=== PATIENT | female | born 1955 | race American Indian/Alaskan Native ===

== ENCOUNTER 2022-08-03 05:00 | Emergency (ER) | payer OTHER ==
[2022-08-03] MEDS ORDERED: Ketorolac 30 MG/ML SDV IM ONE (17:45)
== END 2022-08-03 18:20 | disposition home or self-care (01) ==
LOC: DL.ED 05:00
DX: S80.01XA Contusion of right knee, initial encounter (principal)
CPT/HCPCS: 96372; 99283; J1885

== ENCOUNTER 2025-04-19 20:54 | Emergency (ER) | payer MEDICARE, OTHER ==
[2025-04-19] MEDS: Activated Charcoal/Water Susp 50 GM/240 ML Tube PO ONE (21:00)
[2025-04-19 21:26] LABS: BASOPHILS PERCENT AUTO 0.4 % (0.0-1.0); EOSINOPHILS PERCENT AUTO 1.1 % (1.0-3.0); HEMATOCRIT 44.3 % (37.0-47.0); HEMOGLOBIN 15.1 g/dL (12.0-16.0); LYMPHOCYTES PERCENT AUTO 20.2 % (20.5-50.1); MEAN CORPUSCULAR HEMOGLOBIN 29.8 pg (27.0-34.0); MEAN CORPUSCULAR HGB CONC 34.1 g/dL (33.0-35.0); MEAN CORPUSCULAR VOLUME 87.5 fL (80-100); MONOCYTES PERCENT AUTO 5.3 % (2-8); PLATELET COUNT,PLT 397 10^3/uL (150-450); RED BLOOD CELL COUNT 5.06 10^6/uL (4.2-5.4); WHITE BLOOD CELL COUNT,WBC 11.4 10^3/uL (5.0-10.0)
[2025-04-19 21:36] LABS: O2 DELIVERY DEVICE ROOM AIR
[2025-04-19 21:45] LABS: APPEARANCE,URINE CLEAR (CLEAR); BILIRUBIN,URINE NEGATIVE (NEGATIVE); COLOR,URINE YELLOW (YELLOW); GLUCOSE,URINE NEGATIVE (NEGATIVE); KETONES,URINE NEGATIVE (NEGATIVE); LEUKOCYTE ESTERASE,URINE SMALL (NEGATIVE); NITRITE,URINE NEGATIVE (NEGATIVE); OCCULT BLOOD,URINE TRACE-LYSED (NEGATIVE); PH,URINE 5.5 (5.0-9.0); PROTEIN,URINE NEGATIVE (NEGATIVE); UROBILINOGEN,URINE 0.2 mg/dL (0.2-1.0)
[2025-04-19 21:45] LABS: A/G RATIO 1.2; ALANINE AMINOTRANSFERASE,ALT 16 U/L (14-59); ALBUMIN 4.3 g/dL (3.4-5.0); ALKALINE PHOSPHATASE 149 U/L (46-116); ANION GAP 18.4 mEq/L (7-13); ASPARTATE AMNIOTRANSFERASE,AST 9 U/L (15-37); BILIRUBIN TOTAL 0.3 mg/dL (0.2-1.0); BLOOD UREA NITROGEN,BUN 10 mg/dL (7-18); BUN/CREATININE RATIO 9.3 (No establ ref range); CALCIUM 9.5 mg/dL (8.5-10.1); CARBON DIOXIDE,CO2 22 mmol/L (21-32); CHLORIDE,CL 105 mmol/L (98-107); CREATININE 1.08 mg/dL (0.55-1.02); GLUCOSE RANDOM 133 mg/dL (70-99); MAGNESIUM 2.2 mg/dL (1.8-2.4); PHOSPHORUS 3.2 mg/dL (2.6-4.7); POTASSIUM,K 4.4 mmol/L (3.5-5.1); PROTEIN TOTAL,TP 7.8 g/dL (6.4-8.2); SODIUM,NA 141 mmol/L (136-145)
[2025-04-19 21:46] LABS: ESTIMATED GFR 55 mL/min (>=60); ETHANOL BLOOD MEDICAL < 3 mg/dL (0)
[2025-04-19 21:48] LABS: AMPHETAMINES,URINE NEGATIVE (NEGATIVE); BARBITURATES,URINE NEGATIVE (NEGATIVE); BENZODIAZEPINE,URINE NEGATIVE (NEGATIVE); MDMA (ECSTASY), URINE NEGATIVE (NEGATIVE); METHADONE,URINE NEGATIVE (NEGATIVE); METHAMPHETAMINES,URINE NEGATIVE (NEGATIVE); OPIATES,URINE NEGATIVE (NEGATIVE); OXYCODONE,URINE NEGATIVE (NEGATIVE); PHENCYCLIDINE,URINE NEGATIVE (NEGATIVE); TCA,URINE NEGATIVE (NEGATIVE)
[2025-04-19 21:58] LABS: BASE EXCESS VENOUS -14 mmol/L ((-2)-(+3)); BICARBONATE,VENOUS 13 mmol/L (22-29); O2 SATURATION VENOUS 76 % (60-80); PCO2 VENOUS 25 mmHg (41-51); PH,VENOUS 7.31 pH (7.32-7.43); PO2 VENOUS 43 mmHg (35-42)
[2025-04-19 22:05] LABS: BACTERIA,URINE FEW /HPF (0-FEW/HPF); EPITHELIAL CELLS,URINE RARE /HPF (NOT SEEN); RBC,URINE 0-5 /HPF (0-5); WBC,URINE 0-5 /HPF (0-5/HPF)
[2025-04-19] MEDS ORDERED: Sodium Chloride 0.9% 10 ML Syringe FLUSH PRN (22:12)
[2025-04-19] MEDS: Lactated Ringers 1,000 ML IV ONE (22:29)
[2025-04-19 23:11] LABS: INR 0.9 (0.9-1.2); PROTHROMBIN TIME 9.2 SEC (9.0-12.0)
[2025-04-20] MEDS: Ondansetron 4 MG/2 ML SDV IVPUSH ONE ×2 (00:29→03:50)
[2025-04-20 01:20] LABS: O2 DELIVERY DEVICE ROOM AIR
[2025-04-20 01:26] LABS: BASE EXCESS VENOUS -7.3 mmol/l ((-2)-(+3)); BICARBONATE,VENOUS 18 mmol/l (19-25); O2 SATURATION VENOUS 86.4 % (60-80); PCO2 VENOUS 37 mmHg (41-51); PH,VENOUS 7.31 (7.31-7.41); PO2 VENOUS 58 mmHg (35-42)
[2025-04-20 01:35] LABS: ANION GAP 17.3 mEq/L (7-13); CALCIUM 8.8 mg/dL (8.5-10.1); CREATININE 1.02 mg/dL (0.55-1.02); EST CRCL DRUG DOSING (CG) 49.91 mL/min; POTASSIUM,K 4.3 mmol/L (3.5-5.1)
[2025-04-20] MEDS: Ondansetron 4 MG/2 ML SDV ONE (03:53)
[2025-04-20] MEDS: Metoclopramide 10 MG/2 ML SDV IVPUSH ONE (05:02)
[2025-04-20] MEDS: Promethazine 25 MG/ML SDV IM ONE (07:16)
[2025-04-20 10:20] VITALS: BP 123/42; PULSE 46
== END 2025-04-20 11:04 | disposition home or self-care (01) ==
LOC: DL.ED 20:54
DX: R45.851 Suicidal ideations (principal); F32.A Depression, unspecified; Z90.49 Acquired absence of other specified parts of digestive tract
CPT/HCPCS: 36415; 80048; 80053; 80143; 80179; 80305; 80307; 81001; 82803; 83735; 84100; 85025; 85610; 87086; 87088; 87186; 93005; 93010; 96361; 96372; 96374; 96375; 96376; 99285; A9270; J2405; J2550; J2765; J7120